=== PATIENT | male | born 2000 | race Caucasian/White ===

== ENCOUNTER 2023-12-06 06:06 | Emergency (ER) | payer OTHER ==
[~2023-12-06] VITALS: Ht 182.9 cm; Wt 93.0 kg
[2023-12-06] MEDS ORDERED: DIPHTH,PERTUSS(ACELL),TET VAC 0.5 ML SYRINGE IM ONE (06:45)
[2023-12-06 07:41] VITALS: BP 134/79
== END 2023-12-06 07:44 | disposition home or self-care (01) ==
LOC: ED 06:06
DX: S01.01XA Laceration without foreign body of scalp, initial encounter (principal); W13.2XXA Fall from, out of or through roof, initial encounter; Z23 Encounter for immunization
CPT/HCPCS: 12002; 70450; 90471; 90715; 99283-25